=== PATIENT | female | born 1945 | race Caucasian/White ===

== ENCOUNTER 2024-03-24 13:06 | Day surgery (SDC) | payer MEDICARE, MEDICAID ==
[~2024-03-24] VITALS: Ht 154.9 cm; Wt 44.5 kg
[~2024-03-24 13:06] MED LIST: ACET-1025 PO; ATOR10TA87 PO; IBUP-1984 PO; ONDA4TAB12 PO; RISE150T PO; ROPI0.2534 PO
[2024-03-24 13:32] VITALS: BP 136/50; PULSE 66; RESP 16
[2024-03-24] MEDS ORDERED: diphenhydrAMINE 50 mg/ml inj ONE (13:57)
[2024-03-24] MEDS ORDERED: LIDOcaine 2% Viscous 15ml cup ONE (13:57)
[2024-03-24] MEDS ORDERED: MIDAZolam 1 MG/ML 5ML VIAL ONE (13:57)
[2024-03-24] MEDS ORDERED: fentaNYL/PF 50MCG/1 ML 2ML syringe ONE (13:57)
[2024-03-24 14:38] VITALS: BP 105/57; PULSE 62; RESP 17; O2SAT 97
[2024-03-24 14:48] VITALS: BP 95/54; PULSE 67; RESP 16; O2SAT 99
[2024-03-24 14:58] VITALS: BP 108/59; PULSE 60; RESP 18; O2SAT 99
[2024-03-24 15:08] VITALS: BP 126/62; PULSE 57; RESP 20; O2SAT 99
== END 2024-03-24 15:15 | disposition home or self-care (01) ==
LOC: GI LAB 13:06
PROVIDERS: ATTEND Internal Medicine Gastroenterology
DX: R63.4 Abnormal weight loss (principal); R11.10 Vomiting, unspecified; K31.89 Other diseases of stomach and duodenum; K21.9 Gastro-esophageal reflux disease without esophagitis; K57.30 Diverticulosis of large intestine without perforation or abscess without bleeding; Z86.010 Personal history of colon polyps; Z68.1 Body mass index [BMI] 19.9 or less, adult
CPT/HCPCS: 43239; 99153; A4620; G0121; G0500; J1200; J2250; J3010; J7030; Z7512; 45378; 99152

== ENCOUNTER 2024-04-25 09:35 | Outpatient (CLI) | payer MEDICARE, MEDICAID ==
[~2024-04-25 09:35] MED LIST changes: +ONDA-243 PO; -ONDA4TAB12 PO
== END 2024-04-25 23:00 | disposition home or self-care (01) ==
LOC: RAD 09:35 → EDSTATUS 10:00 → RAD 23:00
PROVIDERS: ATTEND Nurse Practitioner Pediatrics
DX: R11.0 Nausea (principal); R05.9 Cough, unspecified; R13.10 Dysphagia, unspecified
CPT/HCPCS: 71046; 78264; A9541

== ENCOUNTER 2024-06-01 09:46 | Outpatient (CLI) | payer MEDICARE, MEDICAID | END 2024-06-01 23:59 | disposition home or self-care (01) | LOC: RAD 09:46 | PROVIDERS: ATTEND Nurse Practitioner Pediatrics | DX: R13.10 Dysphagia, unspecified (principal) | CPT/HCPCS: 74230 ==